=== PATIENT | female | born 1950 | race Caucasian/White ===

== ENCOUNTER 2022-12-27 14:29 | Emergency (ER) | payer OTHER, BC ==
[2022-12-27 14:54] VITALS: TEMP 98; BMI 25.7
[2022-12-27 15:40] VITALS: PULSE 94; RESP 16
[2022-12-27 16:28] VITALS: BP 195/83
== END 2022-12-27 16:20 | disposition home or self-care (01) ==
LOC: FER 14:29
DX: R20.2 Paresthesia of skin (principal)
CPT/HCPCS: 99282-25

== ENCOUNTER 2023-09-13 09:08 | Day surgery (SDC) | payer OTHER, BC ==
[2023-09-08 11:28] VITALS: BMI 25.7
[2023-09-13] MEDS: TROPICAMIDE 1% OPHTH SOLN 15 ML BOTTLE ONE (09:25)
[2023-09-13] MEDS: CYCLOPENTOLATE 2% OPHTH SOLN 2 ML BOTTLE ONE (09:25)
[2023-09-13] MEDS: CIPROFLOXACIN 0.3% EYE DROPS 5 ML BOTTLE ONE (09:25)
[2023-09-13] MEDS: PHENYLEPHRINE 2.5% OPTHALMIC DROP 2ML BOTTLE ONE (09:25)
[2023-09-13 09:28] VITALS: RESP 18; TEMP 97.3
[2023-09-13] MEDS ORDERED: MIDAZOLAM HCL 2 MG/2 ML SINGLE DOSE VIAL ONE (10:12)
[2023-09-13] MEDS ORDERED: LIDOCAINE 1% P/F 10 MG/ML VIAL ONE (10:45)
[2023-09-13] MEDS ORDERED: BSS (NA/CA/MG/K) BALANCED SALT SOLUTION OPHTH SOLN 15 ML BOTTLE ONE (10:46)
[2023-09-13] MEDS ORDERED: TETRACAINE 0.5% OPHTH SOLN 2 ML BOTTLE ONE (10:46)
[2023-09-13] MEDS ORDERED: CARBACHOL 0.01% INTRA-OCULAR 1.5 ML VIAL ONE (10:46)
[2023-09-13] MEDS ORDERED: NEO/POLYMYX B SULF/DEXAMETH OPHTHALMIC 5ML BOTTLE ONE (10:46)
[2023-09-13 11:31] VITALS: BP 150/68; PULSE 68
== END 2023-09-13 11:35 | disposition home or self-care (01) ==
LOC: FASU 09:08
PROVIDERS: ATTEND Ophthalmology
PROC: 08RJ3JZ Replacement of Right Lens with Synthetic Substitute, Percutaneous Approach (ICD-10-PCS; principal; 2023-09-13 10:44)
DX: H26.8 Other specified cataract (principal)
CPT/HCPCS: 66984; V2632

== ENCOUNTER 2023-11-01 09:54 | Day surgery (SDC) | payer OTHER, BC ==
[2023-10-26 13:26] VITALS: BMI 25.7
[2023-11-01] MEDS: TROPICAMIDE 1% OPHTH SOLN 15 ML BOTTLE ONE (10:35)
[2023-11-01] MEDS: PHENYLEPHRINE 2.5% OPTHALMIC DROP 2ML BOTTLE ONE (10:35)
[2023-11-01] MEDS: CIPROFLOXACIN 0.3% EYE DROPS 5 ML BOTTLE ONE (10:35)
[2023-11-01] MEDS: CYCLOPENTOLATE 2% OPHTH SOLN 2 ML BOTTLE ONE (10:35)
[2023-11-01] MEDS ORDERED: CARBACHOL 0.01% INTRA-OCULAR 1.5 ML VIAL ONE (11:23)
[2023-11-01] MEDS ORDERED: TETRACAINE 0.5% OPHTH SOLN 2 ML BOTTLE ONE (11:23)
[2023-11-01] MEDS ORDERED: NEO/POLYMYX B SULF/DEXAMETH OPHTHALMIC 5ML BOTTLE ONE (11:23)
[2023-11-01] MEDS ORDERED: EPINEPHrine/PF 1 MG/1 ML (1:1,000) AMPULE ONE (11:23)
[2023-11-01] MEDS ORDERED: LIDOCAINE 1% P/F 10 MG/ML VIAL ONE (11:23)
[2023-11-01] MEDS ORDERED: BSS (NA/CA/MG/K) BALANCED SALT SOLUTION OPHTH SOLN 15 ML BOTTLE ONE (11:23)
[2023-11-01] MEDS ORDERED: MIDAZOLAM HCL 2 MG/2 ML SINGLE DOSE VIAL ONE (12:40)
[2023-11-01] MEDS ORDERED: ONDANSETRON 4 MG/2 ML VIAL ONE (13:00)
[2023-11-01 13:15] VITALS: RESP 16; TEMP 97.1
[2023-11-01 13:32] VITALS: BP 156/71; PULSE 69
== END 2023-11-01 13:33 | disposition home or self-care (01) ==
LOC: FASU 09:54
PROVIDERS: ATTEND Ophthalmology
PROC: 08RK3JZ Replacement of Left Lens with Synthetic Substitute, Percutaneous Approach (ICD-10-PCS; principal; 2023-11-01 12:50)
DX: H26.8 Other specified cataract (principal)
CPT/HCPCS: 66984; V2632

== ENCOUNTER 2024-06-05 10:44 | Emergency (ER) | payer OTHER, BC ==
[2024-06-05 10:59] VITALS: BP 163/83; PULSE 91; RESP 20; TEMP 98.8; BMI 25.7
[2024-06-05 12:34] LABS: HEMATOCRIT 38.5 % (32.4-45.2); HEMOGLOBIN 13.2 G/dL (10.7-15.3); MCH 29.1 pg (25.7-33.7); MCHC 34.3 g/dl (32.0-36.0); MEAN CELL VOLUME 84.9 fl (80-96); RBC 4.54 10^6/uL (3.60-5.2); WHITE BLOOD COUNT 4.7 10^3/uL (4.0-10.8)
[2024-06-05 12:47] LABS: ALBUMIN 4.2 g/dl (3.4-5.0); ALK PHOS 77 U/L (45-117); ANION GAP 11 mmol/L (4-13); BILIRUBIN,TOTAL 0.5 mg/dl (0.2-1); CALCIUM 9.5 mg/dl (8.5-10.1); CHLORIDE 101 mmol/L (98-107); CO2 25 mmol/L (21-32); CREATININE 0.6 mg/dl (0.6-1.3); GLUCOSE,RANDOM 105 mg/dl (74-106); POTASSIUM 3.9 mmol/L (3.5-5.1); SGOT/AST 34 U/L (15-37); SGPT/ALT 35 U/L (7-52); SODIUM 137 mmol/L (136-145); TOT PROT 6.3 g/dl (6.4-8.2)
[2024-06-05 13:36] LABS: ANISOCYTOSIS 1+; PLATELET ESTIMATE ADEQUATE
== END 2024-06-05 14:35 | disposition left against medical advice (07) ==
LOC: FER 10:44
DX: R06.02 Shortness of breath (principal); R05.9 Cough, unspecified; Z20.822 Contact with and (suspected) exposure to COVID-19
CPT/HCPCS: 0241U-QW; 36415; 71046-TC-FY; 80053; 83735; 83880; 84484; 85027; 85379; 93005; 99285-25